=== PATIENT | female | born 1960 | race Caucasian/White ===

== ENCOUNTER 2018-10-16 20:47 | Emergency (ER) | payer OTHER ==
[~2018-10-16] VITALS: Ht 157.5 cm; Wt 86.4 kg
[~2018-10-16 20:47] MED LIST: AMITRIPTYLIN50 MG PO; AUGMENTIN875TAB PO; CIPROFLOXACN500 MG PO; CRESTOR5 MG OR; DOXYCYC MONO100 M1 OR; ESTRACE0.5 MG PO; HYDROCHLOROT25 MG PO; LISINOP/HCTZ1 TAB PO; LORTAB 5 OR; METFORMIN500 M1 PO; METO50TA52 OR; METOPROLOL SUC100 MG OR; METOPROLOL SUCC50 MG OR; METRONIDAZOL500 MG PO; MS CONTIN15 MG OR; NEXIUM20 M1 OR; NEXIUM40 M1 PO; PERCOCET1 TA2 OR; PRAVASTATIN20 MG PO; PROGESTERONE100 MG PO; TRICOR145 MG PO
[2018-10-16] MEDS ORDERED: TIZANIDINE HCL4 M1 PO (21:01)
[2018-10-16] MEDS ORDERED: XANAX0.25 MG PO (21:01)
[2018-10-16] MEDS ORDERED: LORTAB 1010 MG PO (22:08)
[2018-10-16 22:25] VITALS: BP 140/81
== END 2018-10-16 22:28 | disposition home or self-care (01) | DRG 563 ==
LOC: ED 20:47
PROC: 2W3LX1Z Immobilization of Right Lower Extremity using Splint (ICD-10-PCS; principal; 2018-10-16)
DX: S93.401A Sprain of unspecified ligament of right ankle, initial encounter (principal); X50.1XXA Overexertion from prolonged static or awkward postures, initial encounter; Y93.01 Activity, walking, marching and hiking; Y92.009 Unspecified place in unspecified non-institutional (private) residence as the place of occurrence of the external cause

== ENCOUNTER 2022-03-29 03:54 | Emergency (ER) | payer BC ==
[2022-03-29] VITALS (13 sets, daily range): BP systolic 107–141; BP diastolic 65–92
[~2022-03-29] VITALS: Ht 157.5 cm; Wt 86.0 kg
[~2022-03-29 03:54] MED LIST changes: +LORTAB 1010 MG PO; +TIZANIDINE HCL4 M1 PO; +XANAX0.25 MG PO
[2022-03-29] MEDS ORDERED: JARDIANCE25 MG (04:15)
[2022-03-29] MEDS ORDERED: GABAPENTIN100 MG PO (04:15)
[2022-03-29] MEDS ORDERED: TRULICITY4.5 MG/0.5 (04:16)
[2022-03-29 04:54] LABS: HEMATOCRIT 44.9 % (37.0-47.0); HEMOGLOBIN 14.1 g/dl (12.0-16.0); IMMATURE GRANULOCYTES 0.6 % (0.0-5.0); MEAN CORPUSCULAR HGB 30.2 pG CALC (26.0-32.0); MEAN CORPUSCULAR HGB CONC 31.4 g/dL CAL (32.0-36.0); NEUT# 5.6 thou/uL (2.00-7.15); RED BLOOD COUNT 4.67 mill/uL (4.20-5.60); RED CELL DISTRI WIDTH 13.6 % (11.5-15.5)
[2022-03-29 04:57] LABS: MEAN CELL VOLUME 96.1 fL CALC (80.0-100.0)
[2022-03-29 05:07] LABS: ALBUMIN 4.2 g/dL (3.2-5.0); ALKALINE PHOSPHATASE 74 u/l (38-126); BILIRUBIN, TOTAL 0.3 mg/dL (0.0-1.4); BUN 14 mg/dL (7-17); BUN/CREATININE RATIO 20 (12-20 (CALC)); CARBON DIOXIDE 27 mmol/l (22-30); CHLORIDE 100 mmol/l (95-108); CREATININE 0.7 mg/dL (0.5-1.0); GFR FOR AFR.AMER. > 60 ML/MIN (>=60 (CALC)); GFR OTHER RACES > 60 ML/MIN (>=60 (CALC)); POTASSIUM 4.7 mmol/l (3.5-5.1); SGOT/AST 26 u/l (14-36); TOTAL PROTEIN 7.1 g/dL (6.3-8.2)
[2022-03-29 05:09] LABS: ANION GAP 13 (6-22 (CALC)); SODIUM 135 mmol/l (137-146)
[2022-03-29 05:18] LABS: URINE BILIRUBIN - DIPSTICK NEGATIVE (NEGATIVE); URINE BLOOD DIPSTICK NEGATIVE (NEGATIVE); URINE COLOR YELLOW; URINE GLUCOSE - DIPSTICK >=1000 mg/dL (NEGATIVE); URINE KETONE NEGATIVE (NEGATIVE); URINE LEUK ESTERASE NEGATIVE (NEGATIVE); URINE PROTEIN - DIPSTICK NEGATIVE (NEG-TRACE); URINE SPECIFIC GRAVITY <=1.005; URINE UROBILINOGEN - DIPSTICK 0.2 E.U./dL (0.2)
[2022-03-29 05:20] LABS: URINE NITRITE - DIPSTICK NEGATIVE (Negative)
[2022-03-29] MEDS ORDERED: NAPROXEN500 MG PO (05:42)
[2022-03-29] MEDS ORDERED: CYCLOBENZAPRINE10 MG PO (05:42)
== END 2022-03-29 10:45 | disposition home or self-care (01) | DRG 552 ==
LOC: ED 03:54
PROVIDERS: Emergency Medicine
DX: M54.50 Low back pain, unspecified (principal); E11.65 Type 2 diabetes mellitus with hyperglycemia; I10 Essential (primary) hypertension; F17.210 Nicotine dependence, cigarettes, uncomplicated; Z79.84 Long term (current) use of oral hypoglycemic drugs; Z79.899 Other long term (current) drug therapy

== ENCOUNTER 2022-03-31 13:09 | Emergency (ER) | payer BC ==
[~2022-03-31] VITALS: Ht 157.5 cm; Wt 90.0 kg
[~2022-03-31 13:09] MED LIST changes: +CYCLOBENZAPRINE10 MG PO; +GABAPENTIN100 MG PO; +JARDIANCE25 MG; +NAPROXEN500 MG PO; +TRULICITY4.5 MG/0.5
[2022-03-31 19:07] LABS: HEMATOCRIT 47.8 % (37.0-47.0); HEMOGLOBIN 15.2 g/dl (12.0-16.0); IMMATURE GRANULOCYTES 0.4 % (0.0-5.0); MEAN CELL VOLUME 95.6 fL CALC (80.0-100.0); MEAN CORPUSCULAR HGB 30.4 pG CALC (26.0-32.0); MEAN CORPUSCULAR HGB CONC 31.8 g/dL CAL (32.0-36.0); NEUT# 9.79 thou/uL (2.00-7.15); RED CELL DISTRI WIDTH 13.5 % (11.5-15.5)
[2022-03-31 19:17] LABS: PROTHROMBIN TIME 10.8 SECONDS (9.0-12.5)
[2022-03-31 19:23] LABS: ALBUMIN 4.3 g/dL (3.2-5.0); ALKALINE PHOSPHATASE 79 u/l (38-126); ANION GAP 14 (6-22 (CALC)); BUN 15 mg/dL (7-17); BUN/CREATININE RATIO 22 (12-20 (CALC)); CARBON DIOXIDE 23 mmol/l (22-30); CHLORIDE 103 mmol/l (95-108); CREATININE 0.7 mg/dL (0.5-1.0); GFR FOR AFR.AMER. > 60 ML/MIN (>=60 (CALC)); GFR OTHER RACES > 60 ML/MIN (>=60 (CALC)); SGOT/AST 36 u/l (14-36); SODIUM 135 mmol/l (137-146); TOTAL PROTEIN 7.8 g/dL (6.3-8.2)
[2022-03-31 19:30] VITALS: BP 156/92
[2022-03-31 19:34] LABS: BILIRUBIN, TOTAL 0.8 mg/dL (0.0-1.4)
[2022-03-31 21:33] VITALS: BP 156/92
== END 2022-03-31 21:35 | disposition short-term general hospital (02) | DRG 552 ==
LOC: ED 13:09
PROVIDERS: Nurse Practitioner
DX: M51.16 Intervertebral disc disorders with radiculopathy, lumbar region (principal); R15.9 Full incontinence of feces; I10 Essential (primary) hypertension; E11.9 Type 2 diabetes mellitus without complications; F17.200 Nicotine dependence, unspecified, uncomplicated

== ENCOUNTER 2023-03-29 13:07 | Emergency (ER) | payer OTHER, BC ==
[~2023-03-29] VITALS: Ht 157.5 cm; Wt 84.0 kg
[2023-03-29 13:19] VITALS: BP 151/85
[2023-03-29 13:30] VITALS: BP 137/79
[2023-03-29] MEDS ORDERED: PROZAC20 MG PO (13:37)
[2023-03-29] MEDS ORDERED: PANTOPRAZOLE SO40 M1 PO (13:38)
[2023-03-29] MEDS ORDERED: BIOTIN5000 MC2 (13:39)
[2023-03-29] MEDS ORDERED: LEVEMIR FLEXPEN 100 (13:43)
[2023-03-29] MEDS ORDERED: [UNRECOGNIZED DRUG - SUPPLY] (13:44)
[2023-03-29] MEDS ORDERED: MAGNESIUM OXID400 M1 (13:45)
[2023-03-29 14:00] VITALS: BP 132/78
[2023-03-29 14:30] VITALS: BP 139/78
[2023-03-29 14:36] LABS: URINE BILIRUBIN - DIPSTICK NEGATIVE (NEGATIVE); URINE BLOOD DIPSTICK NEGATIVE (NEGATIVE); URINE COLOR YELLOW; URINE GLUCOSE - DIPSTICK >=1000 mg/dL (NEGATIVE); URINE KETONE NEGATIVE (NEGATIVE); URINE LEUK ESTERASE NEGATIVE (NEGATIVE); URINE PH 5.5 (4.5-8.0); URINE PROTEIN - DIPSTICK NEGATIVE (NEG-TRACE); URINE SPECIFIC GRAVITY <=1.005; URINE UROBILINOGEN - DIPSTICK 0.2 E.U./dL (0.2)
[2023-03-29 14:38] LABS: URINE NITRITE - DIPSTICK NEGATIVE (Negative)
[2023-03-29 15:00] VITALS: BP 139/79
[2023-03-29] MEDS ORDERED: DIAZEPAM5 MG PO (15:28)
[2023-03-29] MEDS ORDERED: NAPROXEN500 MG PO (15:28)
[2023-03-29] MEDS ORDERED: MEDDOSEPAK PO (15:28)
[2023-03-29] MEDS ORDERED: PERCOCET1 TA4 PO (15:28)
[2023-03-29 15:32] VITALS: BP 139/79
== END 2023-03-29 15:38 | disposition home or self-care (01) | DRG 552 ==
LOC: ED 13:07
PROVIDERS: Nurse Practitioner
DX: M54.16 Radiculopathy, lumbar region (principal); I10 Essential (primary) hypertension; E11.9 Type 2 diabetes mellitus without complications; F17.200 Nicotine dependence, unspecified, uncomplicated; Z79.4 Long term (current) use of insulin; Z98.1 Arthrodesis status

== ENCOUNTER 2023-04-02 13:51 | Emergency (ER) | payer OTHER, BC ==
[2023-04-02] VITALS (13 sets, daily range): BP systolic 136–189; BP diastolic 75–104
[~2023-04-02] VITALS: Ht 157.5 cm; Wt 85.7 kg
[~2023-04-02 13:51] MED LIST changes: +BIOTIN5000 MC2; +DIAZEPAM5 MG PO; +LEVEMIR FLEXPEN 100; +MAGNESIUM OXID400 M1; +MEDDOSEPAK PO; +PANTOPRAZOLE SO40 M1 PO; +PERCOCET1 TA4 PO; +PROZAC20 MG PO; +[UNRECOGNIZED DRUG - SUPPLY]
== END 2023-04-02 16:45 | disposition home or self-care (01) | DRG 552 ==
LOC: ED 13:51
DX: M54.50 Low back pain, unspecified (principal); I10 Essential (primary) hypertension; E11.9 Type 2 diabetes mellitus without complications; Z79.4 Long term (current) use of insulin; F17.210 Nicotine dependence, cigarettes, uncomplicated

== ENCOUNTER 2023-06-01 10:39 | Emergency (ER) | payer BC ==
[2023-06-01] VITALS (12 sets, daily range): BP systolic 150–185; BP diastolic 74–108
[~2023-06-01] VITALS: Ht 157.5 cm; Wt 83.0 kg
[2023-06-01 12:54] LABS: BASO% 0.4 % (0-3); EOS% 4.5 % (0-8); HEMATOCRIT 42.2 % (37.0-47.0); IMMATURE GRANULOCYTES 0.3 % (0.0-5.0); LYMPH% 30.9 % (15-41); MEAN CELL VOLUME 92.5 fL CALC (80.0-100.0); MEAN CORPUSCULAR HGB 28.9 pG CALC (26.0-32.0); MEAN CORPUSCULAR HGB CONC 31.3 g/dL CAL (32.0-36.0); MONO% 7.1 % (2-13); NEUT# 5.81 thou/uL (2.00-7.15); NEUT% 56.8 % (42-76); RED BLOOD COUNT 4.56 mill/uL (4.20-5.60); RED CELL DISTRI WIDTH 13.8 % (11.5-15.5)
[2023-06-01 12:55] LABS: HEMOGLOBIN 13.2 g/dl (12.0-16.0)
[2023-06-01 13:02] LABS: ALBUMIN 4.1 g/dL (3.2-5.0); ALKALINE PHOSPHATASE 100 u/l (38-126); BUN 11 mg/dL (8-23); BUN/CREATININE RATIO 16 (12-20 (CALC)); CHLORIDE 101 mmol/l (95-108); CREATININE 0.7 mg/dL (0.5-1.0); GFR FOR AFR.AMER. > 60 ML/MIN (>=60 (CALC)); GFR OTHER RACES > 60 ML/MIN (>=60 (CALC)); SGOT/AST 49 u/l (9-36); SODIUM 136 mmol/l (137-146); TOTAL PROTEIN 7.3 g/dL (6.3-8.2)
[2023-06-01 13:03] LABS: ANION GAP 9 (6-22 (CALC)); BILIRUBIN, TOTAL 0.4 mg/dL (0.02-1.3); CARBON DIOXIDE 30 mmol/l (22-30); POTASSIUM 3.9 mmol/l (3.5-5.1)
[2023-06-01] MEDS ORDERED: CHLORTHALIDONE25 MG PO (15:16)
== END 2023-06-01 16:03 | disposition home or self-care (01) | DRG 305 ==
LOC: ED 10:39
PROVIDERS: Emergency Medicine
DX: I16.9 Hypertensive crisis, unspecified (principal); I10 Essential (primary) hypertension; E11.9 Type 2 diabetes mellitus without complications; F17.210 Nicotine dependence, cigarettes, uncomplicated; Z79.4 Long term (current) use of insulin